=== PATIENT | female | born 1950 | race Caucasian/White ===

== ENCOUNTER → 2018-09-21 10:38 | Outpatient (CLI) | payer MEDICARE, SELFPAY ==
[2018-09-21 12:34] LABS: Cholesterol 226 mg/dL (200); High Density Lipoprotein 50 mg/dL; T4 Free Direct 0.91 ng/dL (0.76-1.46); Thyroid Stim Hormone (TSH) 1.52 uIU/mL (0.358-3.74); Triglycerides 147 mg/dL; Very Low Density Lipoprotein 29 mg/dL (5-40)
[2018-09-21 12:38] LABS: Vitamin D,25 Hydroxy 55.3 ng/mL (29.95-100.01)
== END ==
PROVIDERS: Visit Provider Family Medicine
DX: E03.9 Hypothyroidism, unspecified (principal); E78.5 Hyperlipidemia, unspecified; E55.9 Vitamin D deficiency, unspecified
CPT/HCPCS: 36415; 80061; 82306; 84439; 84443; 84481

== ENCOUNTER → 2019-10-04 09:24 | Outpatient (CLI) | payer MEDICARE, SELFPAY ==
[2019-10-04 12:14] LABS: Absolute Lymphocyte Count 1.16 X10^3/uL (0.83-4.51); Absolute Neutrophil Count 4.3 X10^3/uL (2.0-7.7); Basophil# 0.03 X10^3/uL; Basophil% 0.5 % (0-1); Eosinophil# 0.08 X10^3/uL; Eosinophils% 1.3 % (0-5); Hematocrit 42.4 % (37-47); Hemoglobin 13.7 g/dL (12.0-15.0); Lymphocyte # 1.16 X10^3/ul (4.0); Lymphocyte % 19.2 % (19-41); Mean Corp Hgb Conc 32.3 g/dL (32-36); Mean Corpuscular Hgb 29.5 pg (27.0-32.0); Mean Corpuscular Volume 91.2 fL (81-99); Mean Platelet Vol. 9.3 fl (6.2-12.0); Monocyte# 0.43 X10^3/uL; Monocyte% 7.1 % (0-10); NRBC Flagged by Analyzer 0 % (0-5); Neutrophil % 71.4 % (47-70); Platelet Count 216 K/mm3 (150-450); RBC Distribution Width CV 12.3 % (11.6-14.6); RBC Distribution Width SD 40.2 fl (35.1-43.9); Red Blood Count 4.65 M/mm3 (4.2-5.4)
[2019-10-04 12:33] LABS: AST(SGOT) 13 U/L (15-37); Alanine Aminotransfer ALT/SGPT 22 U/L (13-56); Albumin, Serum 3.8 g/dL (3.2-5.0); Alkaline Phosphatase 86 U/L (45-117); Anion Gap 5 (5-15); BUN 15 mg/dL (7-18); BUN/Creat Ratio 20.5 RATIO (10-20); Chloride 109 mmol/L (98-107); Cholesterol 232 mg/dL (200); Creatinine, Serum 0.73 mg/dL (0.55-1.02); EST Glomerular Filtration Rate 84 mL/min (>60); Est Glom Filt Rate - Afr Amer 101 mL/min (>60); Free T3 4.3 pg/mL (2.18-3.98); Glucose 93 mg/dL (74-106); High Density Lipoprotein 67 mg/dL; Potassium 4.8 mmol/L (3.5-5.1); Protein, Total 7.8 g/dL (6.4-8.2); Sodium Level 142 mmol/L (136-145); T4 Free Direct 0.92 ng/dL (0.76-1.46); Thyroid Stim Hormone (TSH) 3.46 uIU/mL (0.358-3.74); Triglycerides 80 mg/dL; Very Low Density Lipoprotein 16 mg/dL (5-40)
== END ==
PROVIDERS: PCP Family Medicine; Visit Provider Family Medicine
DX: E03.9 Hypothyroidism, unspecified (principal); E55.9 Vitamin D deficiency, unspecified; Z51.81 Encounter for therapeutic drug level monitoring
CPT/HCPCS: 36415; 80053; 80061; 82306; 84439; 84443; 84481; 85025

== ENCOUNTER → 2020-02-28 13:16 | Outpatient (CLI) | payer MEDICARE, SELFPAY ==
[2020-02-28 15:37] LABS: T4 Free Direct 1.19 ng/dL (0.76-1.46)
== END ==
PROVIDERS: PCP Family Medicine; Visit Provider Family Medicine
DX: E03.9 Hypothyroidism, unspecified (principal)
CPT/HCPCS: 36415; 84439; 84443; 84481

== ENCOUNTER → 2022-06-11 | Outpatient (CLI) | payer MEDICARE, SELFPAY ==
[2022-06-11 18:10] LABS: Absolute Lymphocyte Count 1.58 X10^3/uL (0.83-4.51); Absolute Neutrophil Count 4.8 X10^3/uL (2.0-7.7); Basophil# 0.03 X10^3/uL; Basophil% 0.4 % (0-1); Eosinophil# 0.06 X10^3/uL; Eosinophils% 0.9 % (0-5); Hematocrit 40.3 % (37-47); Hemoglobin 13.9 g/dL (12.0-15.0); Lymphocyte # 1.58 X10^3/ul (0.83-4.51); Lymphocyte % 22.5 % (19-41); Mean Corp Hgb Conc 34.5 g/dL (32-36); Mean Corpuscular Volume 89.8 fL (81-99); Mean Platelet Vol. 9.5 fl (6.2-12.0); Monocyte# 0.51 X10^3/uL; Monocyte% 7.3 % (0-10); NRBC Flagged by Analyzer 0 % (0-5); Neutrophil # 4.81 X10^3/uL (2.7-7.7); Neutrophil % 68.5 % (47-70); Platelet Count 221 K/mm3 (150-450); RBC Distribution Width CV 12.4 % (11.6-14.6); RBC Distribution Width SD 40.8 fl (35.1-43.9); Red Blood Count 4.49 M/mm3 (4.2-5.4)
[2022-06-11 18:38] LABS: ALB/GLOB Ratio 1.1 RATIO (0.9-2.4); AST(SGOT) 18 U/L (15-37); Alanine Aminotransfer ALT/SGPT 27 U/L (13-56); Albumin, Serum 3.8 g/dL (3.2-5.0); Alkaline Phosphatase 79 U/L (45-117); Anion Gap 6 (5-15); BUN 11 mg/dL (7-18); BUN/Creat Ratio 14.6 RATIO (10-20); Calcium,Total 9.1 mg/dL (8.5-10.1); Chloride 107 mmol/L (98-107); Cholesterol 234 mg/dL (200); Creatinine, Serum 0.76 mg/dL (0.55-1.02); EST Glomerular Filtration Rate 80 mL/min (>60); Est Glom Filt Rate - Afr Amer 97 mL/min (>60); Globulin 3.6 g/dL (2.2-4.2); Glucose 94 mg/dL (74-106); High Density Lipoprotein 66 mg/dL; Protein, Total 7.4 g/dL (6.4-8.2); Sodium Level 139 mmol/L (136-145); Triglycerides 129 mg/dL; Very Low Density Lipoprotein 26 mg/dL (5-40)
== END | disposition home or self-care (01) ==
LOC: BFHLAB 15:21
PROVIDERS: PCP Family Medicine; Visit Provider Family Medicine
DX: Z51.81 Encounter for therapeutic drug level monitoring (principal)
CPT/HCPCS: 36415; 80053; 80061; 85025

== ENCOUNTER 2023-01-21 10:28 | Outpatient (CLI) | payer MEDICARE, SELFPAY ==
[2023-01-21 12:29] LABS: Vitamin B12 1039 pg/mL (211-911); Vitamin D,25 Hydroxy 35.4 ng/mL
[2023-01-21 12:44] LABS: Free T3 2.6 pg/mL (2.18-3.98)
[2023-01-21 12:50] LABS: ALB/GLOB Ratio 0.9 RATIO (0.9-2.4); AST(SGOT) 19 U/L (15-37); Alanine Aminotransfer ALT/SGPT 23 U/L (13-56); Albumin, Serum 3.5 g/dL (3.2-5.0); Alkaline Phosphatase 76 U/L (45-117); Anion Gap 4 (5-15); BUN 22 mg/dL (7-18); BUN/Creat Ratio 28.2 RATIO (10-20); Calcium,Total 9.3 mg/dL (8.5-10.1); Chloride 110 mmol/L (98-107); Cholesterol 232 mg/dL (200); Creatinine, Serum 0.78 mg/dL (0.55-1.02); EST Glomerular Filtration Rate 77 mL/min (>60); Est Glom Filt Rate - Afr Amer 93 mL/min (>60); Free T3 3.8 pg/mL (2.18-3.98); Globulin 3.9 g/dL (2.2-4.2); Glucose 86 mg/dL (74-106); High Density Lipoprotein 65 mg/dL; Magnesium 2.5 mg/dL (1.6-2.6); Potassium 4.5 mmol/L (3.5-5.1); Protein, Total 7.4 g/dL (6.4-8.2); Sodium Level 141 mmol/L (136-145); T4 Free Direct 0.93 ng/dL (0.76-1.46); Thyroid Stim Hormone (TSH) 1.81 uIU/mL (0.358-3.74); Triglycerides 110 mg/dL; Very Low Density Lipoprotein 22 mg/dL (5-40)
[2023-01-25 18:07] LABS: Zinc, Plasma or Serum 84 ug/dL (44-115)
== END 2023-01-21 23:59 | disposition home or self-care (01) ==
LOC: BFHLAB 10:32
PROVIDERS: PCP Family Medicine; Referring Provider Family Medicine; Visit Provider Family Medicine
DX: E03.9 Hypothyroidism, unspecified (principal); Z51.81 Encounter for therapeutic drug level monitoring; R53.83 Other fatigue; E53.8 Deficiency of other specified B group vitamins; E55.9 Vitamin D deficiency, unspecified
CPT/HCPCS: 36415; 80053; 80061; 82306; 82533; 82607; 83735; 84439; 84443; 84481; 84630

== ENCOUNTER → 2024-04-28 | Outpatient (CLI) | payer MEDICARE, SELFPAY ==
[2024-04-28 10:33] LABS: Absolute Lymphocyte Count 1.22 X10^3/uL (0.83-4.51); Absolute Neutrophil Count 3.9 X10^3/uL (2.0-7.7); Basophil# 0.03 X10^3/uL; Basophil% 0.5 % (0-1); Eosinophil# 0.08 X10^3/uL; Eosinophils% 1.4 % (0-5); Hematocrit 39.9 % (37-47); Lymphocyte # 1.22 X10^3/ul (0.83-4.51); Lymphocyte % 21.5 % (19-41); Mean Corp Hgb Conc 32.6 g/dL (32-36); Mean Corpuscular Hgb 29.4 pg (27.0-32.0); Mean Corpuscular Volume 90.3 fL (81-99); Monocyte# 0.38 X10^3/uL; Monocyte% 6.7 % (0-10); NRBC Flagged by Analyzer 0 % (0-5); Neutrophil # 3.94 X10^3/uL (2.7-7.7); Neutrophil % 69.5 % (47-70); Platelet Count 204 K/mm3 (150-450); RBC Distribution Width CV 12.4 % (11.6-14.6); RBC Distribution Width SD 40.7 fl (35.1-43.9); Red Blood Count 4.42 M/mm3 (4.2-5.4); White Blood Count 5.7 K/mm3 (4.4-11.0)
[2024-04-28 11:14] LABS: Erythrocyte Sedimentation Rate 7 mm/hr (0-30)
[2024-04-28 11:25] LABS: T3 Total - Triiodothyronine 1.63 ng/mL (0.6-1.81); Vitamin B12 1318 pg/mL (211-911)
[2024-04-28 11:30] LABS: Hemoglobin A1c 4.9 % (3.8-5.6)
[2024-04-28 13:37] LABS: ALB/GLOB Ratio 0.9 RATIO (0.9-2.4); AST(SGOT) 20 U/L (15-37); Alanine Aminotransfer ALT/SGPT 31 U/L (13-56); Albumin, Serum 3.4 g/dL (3.2-5.0); Alkaline Phosphatase 80 U/L (45-117); Anion Gap 9 (5-15); BUN 16 mg/dL (7-18); BUN/Creat Ratio 20.8 RATIO (10-20); Calcium,Total 8.9 mg/dL (8.5-10.1); Chloride 112 mmol/L (98-107); Cholesterol 267 mg/dL (200); Creatinine, Serum 0.77 mg/dL (0.55-1.02); EST Glomerular Filtration Rate 78 mL/min (>60); Est Glom Filt Rate - Afr Amer 94 mL/min (>60); Ferritin 7 ng/mL (8-252); Folates, (Folic Acid) > 100.00 ng/mL (3.1-55.4); Globulin 3.6 g/dL (2.2-4.2); Glucose 85 mg/dL (74-106); High Density Lipoprotein 68 mg/dL; Iron 92 ug/dL (50-170); Iron Binding Capacity,Total 316 ug/dL (250-450); LDH 171 U/L (84-246); PERCENT IRON SATURATION 29.1 % (15.0-55.0); Potassium 3.7 mmol/L (3.5-5.1); Sodium Level 143 mmol/L (136-145); T4 Free Direct 0.89 ng/dL (0.76-1.46); T4 Total, Thyroxin 7.3 ug/dL (4.8-13.9); Triglycerides 158 mg/dL; Uric Acid 5.7 mg/dL (2.6-6.0); Very Low Density Lipoprotein 32 mg/dL (5-40)
[2024-05-03 08:12] LABS: Thyroid Peroxidase AB 24 IU/mL (0-34)
[2024-05-03 18:08] LABS: Anti-Thyroglobulin AB < 1.0 IU/mL (0.0-0.9); GGTP 13 IU/L (0-60); Insulin Level 7.3 uIU/mL (2.6-24.9); T3 Reverse 17.8 ng/dL (9.2-24.1); Thyroglobulin, Serum Qt. 16.1 ng/mL (1.5-38.5); Thyroxin Bind Glob (TBG) 19 ug/mL (13-39); Transferrin 260 mg/dL (192-364)
[2024-05-04 07:08] LABS: Ash, White <0.10 kU/L (Class 0); Aspergillus fumigatus 0.51 kU/L (Class I); Bermuda Grass <0.10 kU/L (Class 0); Birch <0.10 kU/L (Class 0); Black Walnut <0.10 kU/L (Class 0); CRP, High Sensitivity 1.05 mg/L (0.00-3.00); Cat Hair / Dander,Stand <0.10 kU/L (Class 0); Cedar, Mountain <0.10 kU/L (Class 0); Cladosporium herbarum <0.10 kU/L (Class 0); Cottonwood <0.10 kU/L (Class 0); D farinae Mite <0.10 kU/L (Class 0); D pteronyssinus <0.10 kU/L (Class 0); Dog Epithelia <0.10 kU/L (Class 0); Elm, American White <0.10 kU/L (Class 0); Immunoglobulin E 15 IU/mL (6-495); Maple/Box Elder <0.10 kU/L (Class 0); Mouse Urine <0.10 kU/L (Class 0); Mulberry, White <0.10 kU/L (Class 0); Oak, White <0.10 kU/L (Class 0); Pecan <0.10 kU/L (Class 0); Penicillium Notatum <0.10 kU/L (Class 0); Pigweed, Rough <0.10 kU/L (Class 0); Ragweed, Short/Common <0.10 kU/L (Class 0); Russian Thistle <0.10 kU/L (Class 0); Sheep Sorrel <0.10 kU/L (Class 0); Sycamore, American <0.10 kU/L (Class 0); Timothy Grass 0.12 kU/L (Class 0/I)
== END | disposition home or self-care (01) ==
LOC: MTLAB 09:22
PROVIDERS: PCP Family Medicine; Referring Provider Family Medicine; Visit Provider Family Medicine
DX: E03.9 Hypothyroidism, unspecified (principal); R53.83 Other fatigue; E55.9 Vitamin D deficiency, unspecified; M25.50 Pain in unspecified joint; M79.10 Myalgia, unspecified site; R73.01 Impaired fasting glucose; E53.8 Deficiency of other specified B group vitamins; E78.5 Hyperlipidemia, unspecified; J30.9 Allergic rhinitis, unspecified; M10.9 Gout, unspecified; D64.9 Anemia, unspecified; R74.8 Abnormal levels of other serum enzymes
CPT/HCPCS: 36415; 80053; 80061; 82306; 82607; 82728; 82746; 82785; 82977; 83036; 83525; 83540; 83550; 83615; 83735; 84432; 84436; 84439; 84442; 84443; 84466; 84480; 84481; 84482; 84550; 85025; 85652; 86003; 86141; 86376; 86800

== ENCOUNTER → 2025-05-07 | Outpatient (CLI) | payer MEDICARE, SELFPAY ==
--- OUTSIDE RECORDS SUMMARY | 2024-10-27 14:00 | XMS RPT_ITS ---
Author Name Auto Generated Organization OHIP Care Team Providers Care Body Joiner Name Role Phone THIAGO ERNANDEZ Attending Unavailable APARNA ELDER Primary Care Unavailable PROBLEMS DATE TYPE CONDITION / CODE ATTENDING STATUS [facility] 10/27/2024 Active Paroxysmal SVT (supraventricular tachycardia) (HCC) / I47.10(ICD-10) THIAGO ERNANDEZ Active [facility] 10/27/2024 Active Coronary artery disease due to lipid rich plaque / I25.10(ICD-10) THIAGO ERNANDEZ Active [facility] 10/27/2024 Active Coronary artery disease due to lipid rich plaque / I25.83(ICD-10) THIAGO ERNANDEZ Active [facility] PROCEDURES No Procedure Records Found RESULTS PROCEDURE Observed: 10/27/2024 3:03 PM Status: COMPLETED Source: [facility] HNO ID: [id number] Author: CATALINA MEZA MA Service: ? Author Type: Manager Statistical Programming Type: Procedures Filed: 10/27/2024 15:15 Note Text: EVENT MONITOR DISPOSABLE PATCH INSTRUCTIONS Patient Name: Nan Nix Clinic Number: [id number] Skin prepped and cleansed with alcohol Patch secured to prepped area Monitor Activated Serial #: [id number] Patient Instructed: Prescribed order timeframe Bathing guidelines Usage of event button and diary documentation Return of monitor at the end of prescribed order Call with problems [phone] or [phone]. [phone] Patient expresses a good understanding of instructions Catalina Meza MA PROCEDURE Observed: 10/27/2024 2:02 PM Status: COMPLETED Source: [facility] HNO ID: [id number] Author: GABRIELLA THACKER MD Service: ? Author Type: Physician Type: Procedures Filed: 11/17/2024 17:01 Note Text: Patient Name: Nan Nix : 1950 Ordering Provider: THIAGO ERNADNEZ Indication: I47.10 Supraventricular Tachycardia, unspecified Type of Monitor: Extended Monitoring-Zio Patch Enrollment Dates: 10/27/2024-11/10/2024 IRHYTHM FINDINGS: - Underlying rhythm was sinus rhythm. Patient had a min HR of 49 bpm, max HR of 145 bpm, and avg HR of 74 bpm. - 47 Supraventricular Tachycardia (SVT) runs occurred, the run with the fastest interval lasting 6 beats with a max rate of 145 bpm, the longest lasting 21.6 secs with an avg rate of 112 bpm. - Rare premature atrial contractions (PACs) (<1%) and rare premature ventricular contractions (PVCs) (<1%). Ventricular trigeminy was present. - Triggered events correlated with sinus rhythm, PACs, and PVCs. Can't exclude symptoms with SVT due to artifact. Gabriella Thacker MD MPH [facility] CNOV Observed: 10/27/2024 2:00 PM Status: COMPLETED Source: [facility] Office Visit (ROMEO) ANÍBALNAN ([id number]) 1950 F Date Time Provider Department 10/27/24 2:00 PM THIAGO ERNANDEZ During your visit today, we recorded the following information about you: Pulse Blood pressure Weight Height 86/minute 126/70 91 kg 1.727 m Thiago Ernandez MD 10/27/2024 3:15 PM Signed [facility] [place] SECTION OF REGIONAL CARDIOLOGY OUTPATIENT VISIT DATE 10/27/2024 OUTPATIENT VISIT TYPE ESTABLISHED PRIMARY CARE PHYSICIAN: Aparna Elder [address] [facility] [place] [address] Patient is being seen at the request of self for follow up HISTORY OF PRESENT ILLNESS: Ms. Nix is a 74 year old female, hx of paroxysmal SVT, hyperlipidemia, presents for f/u visit. Previously seen by Dr. Daniel. She experiences an anxious feeling that lasts a few seconds. Occurs a few times per day at times. She is not sure if these are palpitations. She denies chest pain, SOB, orthopnea, PND, leg swelling, lightheadedness, syncope. She takes plaquex. Ziopatch 07/28/22: HR 47-272 bpm, and avg HR of 77 bpm. Predominant underlying rhythm was Sinus Rhythm. 1 run of multifocal VT occurred lasting 5 beats. 134 SVT runs occurred, the run with the fastest interval lasting 12 mins 24 secs with a max rate of 235 bpm (avg 150 bpm); the run with the fastest interval was also the longest. True duration of SVT difficult to ascertain due to artifact. SVT was present at deactivation of device. Supraventricular Tachycardia was detected within +/- 45seconds of symptomatic patient event(s). Isolated SVEs were rare (<1.0%), SVE Couplets were rare (<1.0%), and SVE Triplets were rare (<1.0%). Isolated VEs were rare (<1.0%, 2863), VE Couplets were rare (<1.0%, 12), and VE Triplets were rare(<1.0%, 3). Ventricular Bigeminy and Trigeminy were present. Cardiac cath 07/21/22: mild diffuse LAD and RCA disease. LVEF 60%, normal LV size and function. Stress echo 07/16/2022: Inferior, basal inferoseptal segment mildly hypokinetic, trace TR, positive for ischemia at 112% MPHR. 5.4 METS. PAST MEDICAL HISTORY Diagnosis Date Palpitations PSVT (paroxysmal supraventricular tachycardia) (HCC) Pure hypercholesterolemia Sinus tachycardia Unstable angina (HCC) No past surgical history on file. Social History Tobacco Use Smoking status: Never Smokeless tobacco: Never Substance Use Topics Alcohol use: No FAMILY HISTORY Problem Relation Age of Onset Heart Mother after stopping blood thinners Heart Attack Father COD @ 72 years old ALLERGIES No Known Allergies CURRENT MEDICATIONS: metoprolol succinate ER (TOPROL XL) 50 mg 24 hr tablet Take 1 tablet by mouth once daily. aspirin, enteric coated (ECOTRIN LOW STRENGTH) 81 mg EC tablet Take 1 tablet by mouth once daily. GARLIC once daily. HAWTHORN AGARWAL ORAL Take by mouth once daily. thyroid, pork, (ARMOUR THYROID) 60 mg tab Take 1 tablet by mouth once daily. Cholecalciferol, Vitamin D3, 25 mcg (1,000 unit) cap Take 2,000 Units by mouth once daily. multivitamin ORAL tablet Take one(1) tablet daily. PHYSICAL EXAMINATION: BP 126/70 Pulse 86 Ht 172.7 cm (5' 8) Wt 91 kg (200 lb 9.9 oz) SpO2 99% BMI 30.50 kg/m? General: Appears comfortable in no apparent cardiopulmonary distress Neck: No JVD, no bruits CVS: S1, S2, No m/r/g Chest: CTAB Abd: Soft, nontender, no masses, BS present Ext: No pedal edema, pedal pulses 2+ bilaterally Neuro: No focal neurological deficits CARDIOVASCULAR MEDICINE TESTING: Last EKG Result Conclusion ECG COMPLETE Collected: 12/08/2023 9:42 AM (Final result) Impression: SINUS RHYTHM WITH 1ST DEGREE AV BLOCK POSSIBLE LEFT ATRIAL ENLARGEMENT BORDERLINE ECG Confirmed by MD DENNIS GREGORY () on 12/09/2023 8:24:19 AM ASSESSMENT/PLAN: 1. Paroxysmal SVT (supraventricular tachycardia) (HCC) - ICD9: 427.0, ICD10: I47.10 (primary diagnosis) - We discussed obtaining 2-week Ziopatch monitor to determine whether her symptoms correspond to any arrhythmias. Ziopatch monitor placed in clinic. MyChart/call with results. - Metoprolol succinate 50 mg daily. 2. Coronary artery disease due to lipid rich plaque - ICD9: 414.00, 414.3, ICD10: I25.10, I25.83 - On aspirin 81 mg p.o. daily. - Discussed cholesterol-lowering medication such as statin therapy to help reduce plaque burden and stabilize plaque. She is declining. She would like to continue with cholesterol lowering supplements. - We discussed low cholesterol diet- avoid red meats and processed foods, focus on lean portions of white meat- chicken and turkey breast, fish, healthy nuts, fruits, vegetables. - He was counseled on gradually achieving at least 30 minutes of moderate intensity aerobic exercise 5x per week-biking, brisk walking, hiking, swimming, rowing. Thiago Ernandez MD, [facility] Catalina Meza MA 10/27/2024 3:15 PM Signed EVENT MONITOR DISPOSABLE PATCH INSTRUCTIONS Patient Name: Nan Nix Clinic Number: [id number] Skin prepped and cleansed with alcohol Patch secured to prepped area Monitor Activated Serial #: [id number] Patient Instructed: Prescribed order timeframe Bathing guidelines Usage of event button and diary documentation Return of monitor at the end of prescribed order Call with problems [phone] or [phone]. [phone] Patient expresses a good understanding of instructions Catalina Meza MA Allergies As of Date: 10/27/2024 (No Known Allergies) Date Reviewed: 10/27/2024 Reviewed by: Catalina Meza MA - Fully Assessed Reason for Visit: Follow Up [171] Cmt: Follow up Previously seen by Fredy Serna of PSVT, hypercholesterolemia ECG 12/08/2023 Pt reports having some anxiety type of symptoms. Primary Visit Diagnosis:Paroxysmal SVT (supraventricular tachycardia) (HCC) [I47.10] Other Visit Diagnosis:Coronary artery disease due to lipid rich plaque [I25.10, I25.83] Order(s):OUTSIDE VENDOR CARDIAC OUTPATIENT EXTENDED RHYTHM RECORDING (WITHOUT TELEMETRY) [[id number]] Order #: [id number]: 1 Prescriptions as of 10/27/2024 - ascorbic acid/vit B12/zinc (ZINC PLUS ORAL) Take by mouth. - metoprolol succinate ER (TOPROL XL) 50 mg 24 hr tablet Take 1 tablet by mouth once daily. - aspirin, enteric coated (ECOTRIN LOW STRENGTH) 81 mg EC tablet Take 1 tablet by mouth once daily. - GARLIC once daily. - HAWTHORN AGARWAL ORAL Take by mouth once daily. - thyroid, pork, (ARMOUR THYROID) 60 mg tab Take 1 tablet by mouth once daily. - Cholecalciferol, Vitamin D3, 25 mcg (1,000 unit) cap Take 2,000 Units by mouth once daily. - multivitamin ORAL tablet Take one(1) tablet daily. 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 Author Type: Physician Type: Progress Notes Filed: 10/27/2024 15:15 Note Text: [facility] [place] SECTION OF REGIONAL CARDIOLOGY OUTPATIENT VISIT DATE 10/27/2024 OUTPATIENT VISIT TYPE ESTABLISHED PRIMARY CARE PHYSICIAN: Aparna Elder [address] [place] [address] Patient is being seen at the request of self for follow up HISTORY OF PRESENT ILLNESS: Ms. Nix is a 74 year old female, hx of paroxysmal SVT, hyperlipidemia, presents for f/u visit. Previously seen by Dr. Daniel. She experiences an anxious feeling that lasts a few seconds. Occurs a few times per day at times. She is not sure if these are palpitations. She denies chest pain, SOB, orthopnea, PND, leg swelling, lightheadedness, syncope. She takes plaquex. Ziopatch 07/28/22: HR 47-272 bpm, and avg HR of 77 bpm. Predominant underlying rhythm was Sinus Rhythm. 1 run of multifocal VT occurred lasting 5 beats. 134 SVT runs occurred, the run with the fastest interval lasting 12 mins 24 secs with a max rate of 235 bpm (avg 150 bpm); the run with the fastest interval was also the longest. True duration of SVT difficult to ascertain due to artifact. SVT was present at deactivation of device. Supraventricular Tachycardia was detected within +/- 45seconds of symptomatic patient event(s). Isolated SVEs were rare (<1.0%), SVE Couplets were rare (<1.0%), and SVE Triplets were rare (<1.0%). Isolated VEs were rare (<1.0%, 2863), VE Couplets were rare (<1.0%, 12), and VE Triplets were rare(<1.0%, 3). Ventricular Bigeminy and Trigeminy were present. Cardiac cath 07/21/22: mild diffuse LAD and RCA disease. LVEF 60%, normal LV size and function. Stress echo 07/16/2022: Inferior, basal inferoseptal segment mildly hypokinetic, trace TR, positive for ischemia at 112% MPHR. 5.4 METS. PAST MEDICAL HISTORY Diagnosis Date Palpitations PSVT (paroxysmal supraventricular tachycardia) (HCC) Pure hypercholesterolemia Sinus tachycardia Unstable angina (HCC) No past surgical history on file. Social History Tobacco Use Smoking status: Never Smokeless tobacco: Never Substance Use Topics Alcohol use: No FAMILY HISTORY Problem Relation Age of Onset Heart Mother after stopping blood thinners Heart Attack Father COD @ 72 years old ALLERGIES No Known Allergies CURRENT MEDICATIONS: metoprolol succinate ER (TOPROL XL) 50 mg 24 hr tablet Take 1 tablet by mouth once daily. aspirin, enteric coated (ECOTRIN LOW STRENGTH) 81 mg EC tablet Take 1 tablet by mouth once daily. GARLIC once daily. HAWTHORN AGARWAL ORAL Take by mouth once daily. thyroid, pork, (ARMOUR THYROID) 60 mg tab Take 1 tablet by mouth once daily. Cholecalciferol, Vitamin D3, 25 mcg (1,000 unit) cap Take 2,000 Units by mouth once daily. multivitamin ORAL tablet Take one(1) tablet daily. PHYSICAL EXAMINATION: BP 126/70 Pulse 86 Ht 172.7 cm (5' 8) Wt 91 kg (200 lb 9.9 oz) SpO2 99% BMI 30.50 kg/m? General: Appears comfortable in no apparent cardiopulmonary distress Neck: No JVD, no bruits CVS: S1, S2, No m/r/g Chest: CTAB Abd: Soft, nontender, no masses, BS present Ext: No pedal edema, pedal pulses 2+ bilaterally Neuro: No focal neurological deficits CARDIOVASCULAR MEDICINE TESTING: Last EKG Result Conclusion ECG COMPLETE Collected: 12/08/2023 9:42 AM (Final result) Impression: SINUS RHYTHM WITH 1ST DEGREE AV BLOCK POSSIBLE LEFT ATRIAL ENLARGEMENT BORDERLINE ECG Confirmed by MD DENNIS GREGORY () on 12/09/2023 8:24:19 AM ASSESSMENT/PLAN: 1. Paroxysmal SVT (supraventricular tachycardia) (HCC) - ICD9: 427.0, ICD10: I47.10 (primary diagnosis) - We discussed obtaining 2-week Ziopatch monitor to determine whether her symptoms correspond to any arrhythmias. Ziopatch monitor placed in clinic. MyChart/call with results. - Metoprolol succinate 50 mg daily. 2. Coronary artery disease due to lipid rich plaque - ICD9: 414.00, 414.3, ICD10: I25.10, I25.83 - On aspirin 81 mg p.o. daily. - Discussed cholesterol-lowering medication such as statin therapy to help reduce plaque burden and stabilize plaque. She is declining. She would like to continue with cholesterol lowering supplements. - We discussed low cholesterol diet- avoid red meats and processed foods, focus on lean portions of white meat- chicken and turkey breast, fish, healthy nuts, fruits, vegetables. - He was counseled on gradually achieving at least 30 minutes of moderate intensity aerobic exercise 5x per week-biking, brisk walking, hiking, swimming, rowing. Thiago Ernandez MD, [facility] ALLERGIES DATE TYPE / CODE NAME / CODE REACTION SEVERITY SOURCE Drug Class/802304167(SNO MED CT) NO KNOWN ALLERGIES [facility] ENCOUNTERS ADMIT/DISCHARGE ACCOUNT NUMBER ADMITTING ENCOUNTER CLASS LOC ATION SOURCE 10/27/2024/ 5 [id number] [facility] PAYERS ENCOUNTER GUARANTOR PAYER SUBSCRIBER SOURCE 10/27/2024 Primary Insurance:ANTH MEDICARE ADVANTAGE PPOPolicy Number: [id number] Date:1848-50-59Apjs Name:Aaron BELLA: [id number] [place] [address] [facility]
--- OUTSIDE RECORDS SUMMARY | 2024-10-27 14:00 | XMS RPT_ITS ---
Author Name Auto Generated Organization OHIP Care Team Providers Care Admitting Manager Name Role Phone THIAGO ERNANDEZ Attending Unavailable APARNA ELDER Primary Care Unavailable PROBLEMS DATE TYPE CONDITION / CODE ATTENDING STATUS [facility] 10/27/2024 Active Paroxysmal SVT (supraventricular tachycardia) (HCC) / I47.10(ICD-10) THIAGO ERNANDEZ Active [facility] 10/27/2024 Active Coronary artery disease due to lipid rich plaque / I25.10(ICD-10) THIAGO ERNANDEZ Active [facility] 10/27/2024 Active Coronary artery disease due to lipid rich plaque / I25.83(ICD-10) THIAGO ERNANDEZ Active [facility] PROCEDURES No Procedure Records Found RESULTS PROCEDURE Observed: 10/27/2024 3:03 PM Status: COMPLETED Source: [facility] HNO ID: [id number] Author: CATALINA MEZA MA Service: ? Author Type: Assistant Store Director Type: Procedures Filed: 10/27/2024 15:15 Note Text: EVENT MONITOR DISPOSABLE PATCH INSTRUCTIONS Patient Name: Nan Nix Clinic Number: [id number] Skin prepped and cleansed with alcohol Patch secured to prepped area Monitor Activated Serial #: [id number] Patient Instructed: Prescribed order timeframe Bathing guidelines Usage of event button and diary documentation Return of monitor at the end of prescribed order Call with problems [phone] or [phone]. [phone] Patient expresses a good understanding of instructions Catalina Meza MA PROCEDURE Observed: 10/27/2024 2:02 PM Status: COMPLETED Source: [facility] HNO ID: [id number] Author: GABRIELLA THACKER MD Service: ? Author Type: Physician Type: Procedures Filed: 11/17/2024 17:01 Note Text: Patient Name: Nan Nix : 1950 Ordering Provider: THIAGO ERNANDEZ Indication: I47.10 Supraventricular Tachycardia, unspecified Type of [...] due to artifact. Gabriella Thacker MD MPH [facility] CNOV Observed: 10/27/2024 2:00 PM Status: COMPLETED Source: [facility] Office Visit (ROMEO) ANÍBALNAN ([id number]) 1950 F Date Time Provider Department 10/27/24 2:00 PM THIAGO ERNANDEZ During your visit today, we recorded the following information about you: Pulse Blood pressure Weight Height 86/minute 126/70 91 kg 1.727 m Thiago Ernandez MD 10/27/2024 3:15 PM Signed [facility] [place] SECTION OF REGIONAL CARDIOLOGY OUTPATIENT VISIT DATE 10/27/2024 OUTPATIENT VISIT TYPE ESTABLISHED PRIMARY CARE PHYSICIAN: Aparna Elder [address] [facility] [place] [address] Patient is being seen at the request [...] walking, hiking, swimming, rowing. Thiago Ernandez MD, [facility] Catalina Meza MA 10/27/2024 3:15 PM Signed EVENT MONITOR DISPOSABLE PATCH INSTRUCTIONS Patient Name: Nan Nix Clinic Number: [id number] Skin prepped and cleansed with alcohol Patch secured to prepped area Monitor Activated Serial #: [id number] Patient Instructed: Prescribed order timeframe Bathing guidelines Usage of event button and diary documentation Return of monitor at the end of prescribed order Call with problems [phone] or [phone]. [phone] Patient expresses a good understanding of instructions Catalina Meza MA Allergies As of Date: 10/27/2024 (No Known Allergies) Date Reviewed: 10/27/2024 Reviewed by: Catalina Mzea MA - Fully Assessed Reason for Visit: Follow Up [171] Cmt: Follow up Previously seen by Fredy Serna of PSVT, hypercholesterolemia ECG 12/08/2023 Pt reports having some anxiety type of symptoms. Primary Visit Diagnosis:Paroxysmal SVT (supraventricular tachycardia) (HCC) [I47.10] Other Visit Diagnosis:Coronary artery disease due to lipid rich plaque [I25.10, I25.83] Order(s):OUTSIDE VENDOR CARDIAC OUTPATIENT EXTENDED RHYTHM RECORDING (WITHOUT TELEMETRY) [[id number]] Order #: [id number]: 1 Prescriptions as of 10/27/2024 - ascorbic [...] Observed: 10/27/2024 2:00 PM Status: COMPLETED Source: [facility] ID: [id number] Author: THIAGO ERNANDEZ MD Service: ? Author Type: Physician Type: Progress Notes Filed: 10/27/2024 15:15 Note Text: [facility] [place] SECTION OF REGIONAL CARDIOLOGY OUTPATIENT VISIT DATE 10/27/2024 OUTPATIENT VISIT TYPE ESTABLISHED PRIMARY CARE PHYSICIAN: Aparna Elder [address] [place] [address] Patient is being seen at the request [...] walking, hiking, swimming, rowing. Thiago Ernandez MD, [facility] ALLERGIES DATE TYPE / CODE NAME / CODE REACTION SEVERITY SOURCE Drug Class/[id number](SNO MED CT) NO KNOWN ALLERGIES [facility] ENCOUNTERS ADMIT/DISCHARGE ACCOUNT NUMBER ADMITTING ENCOUNTER CLASS LOC ATION SOURCE 10/27/2024/ 5 [id number] [facility] PAYERS ENCOUNTER GUARANTOR PAYER SUBSCRIBER SOURCE 10/27/2024 Primary Insurance:ANTH MEDICARE ADVANTAGE PPOPolicy Number: [id number] Date:[id number] Name:Aaron BELLA: [id number] [place] [address] [facility]
[2025-05-07 12:17] LABS: Hematocrit 39.8 % (37-47); Hemoglobin 13.7 g/dL (12.0-15.0); Immature Granulocytes Count 0.010 X10^3/uL (0.0-0.0); Mean Corp Hgb Conc 34.4 g/dL (32-36); Mean Corpuscular Volume 88.4 fL (81-99); Mean Platelet Vol. 9.2 fl (6.2-12.0); NRBC Flagged by Analyzer 0 % (0-5); Platelet Count 209 K/mm3 (150-450); RBC Distribution Width CV 12.1 % (11.6-14.6); RBC Distribution Width SD 39.0 fl (35.1-43.9); Red Blood Count 4.50 M/mm3 (4.2-5.4); White Blood Count 5.9 K/mm3 (4.4-11.0)
[2025-05-07 13:30] LABS: AST(SGOT) 20 U/L (<=31); Alanine Aminotransfer ALT/SGPT 13 U/L (<=34); Albumin, Serum 4.1 g/dL (3.4-4.8); Alkaline Phosphatase 81 U/L (35-104); Anion Gap 11 (5-15); BUN 16 mg/dL (4-19); BUN/Creat Ratio 23.2 RATIO (10-20); Calcium,Total 9.1 mg/dL (7.6-11.0); Carbon Dioxide 23.1 mmol/L (21.0-32.0); Chloride 109 mmol/L (98-108); Ferritin 19 ng/mL (22-378); Globulin 2.8 g/dL (2.2-4.2); Glucose 95 mg/dL (70-99); Iron 81 ug/dL (50-170); Potassium 4.1 mmol/L (3.3-5.1); Vitamin D,25 Hydroxy 69.5 ng/mL (30-100)
== END | disposition home or self-care (01) ==
LOC: MTLAB 10:19
PROVIDERS: PCP Family Medicine; Referring Provider Family Medicine; Visit Provider Family Medicine
DX: R53.83 Other fatigue (principal); E61.1 Iron deficiency; E55.9 Vitamin D deficiency, unspecified; E03.9 Hypothyroidism, unspecified; Z51.81 Encounter for therapeutic drug level monitoring
CPT/HCPCS: 36415; 80053; 82306; 82728; 83540; 84443; 85025